=== PATIENT | female | born 1975 ===

== ENCOUNTER → 2017-11-16 | Emergency (ER) | payer OTHER ==
[~2017-11-16] VITALS: Ht 167.6 cm; Wt 72.6 kg
[~2017-11-16] MED LIST: CIPRO500 MG PO; FLAGYL500MG PO; INTESTINEX680 MG PO; ZANTAC150 MG PO
== END | disposition home or self-care (01) ==
LOC: ER 07:28
DX: N39.0 Urinary tract infection, site not specified (principal)